=== PATIENT | male | born 1980 | race Caucasian/White ===

== ENCOUNTER 2021-04-26 06:17 | Inpatient (IN) | payer OTHER, SELFPAY ==
[2021-04-26] VITALS (25 sets, daily range): BP systolic 113–132; BP diastolic 80–94; PULSE 67–105; RESP 14–29; TEMP 36.4
--- NOTE | 2021-04-26 04:53 | XACV_ITS ---
Exam Room: 1 Ht: 170 cm Wt: 92 kg BSA: 2.11 m2 Gender: Male : 1980 Any Known Allergies: Other Exam Priority: Routine Indication(s): - Acute coronary syndrome Procedure(s): Procedure Description: Diagnostic procedure Procedure Description: PCI procedure Procedure Description: Drug Eluting Coronary Stent Procedure Description: PTCA Procedure Description: Miscellaneous Procedure Description: Angio-Seal Procedure Description: Coronary Angiography Diagnostic Cath Status: Emergency Diagnostic Findings * Mid Right Coronary Artery to Distal Right Coronary Artery: total thrombotic occlusion, ANTHONY: 0 flow. This is culprit vessel for ST elevation [place]. * Left Main has no disease. * Left Anterior Descending has no disease. * Circumflex has no disease. * Coronary angiography shows right dominance. PCI Status: Emergency PCI Indication: Immediate PCI for STEMI Interventional Findings * Procedure details: We engaged RCA with a JR4 guide catheter. IV heparin was administered to maintain an ACT above 250 seconds. A 0.014 run-through guidewire was used to cross the stenosis and was placed in PDA branch. 2.5 x 12 mm semicompliant balloon was used to predilate the stenosis in the mid RCA. This was followed by placement of 3.0 x 26 mm resolute Kenny drug-eluting stent. At the distal edge of the stent, haziness was noted. We placed a second stent to cover that area using a 3.0x12mm Resolute Kenny BRODIE. At this time final angiogram was performed that showed excellent stent expansion, ANTHONY-3 flow and no residual stenosis. Guidewire and guide catheter were removed. Patient left the [facility] in a stable condition. * Mid Right Coronary Artery to Distal Right Coronary Artery: 100% stenosis treated with a AB TREK 2.50X12 RX BALLOON, and MDT R KENNY 3.0X8 BRODIE. 0% residual stenosis, ANTHONY: 3 flow. * Distal Right Coronary Artery: 100% stenosis treated with a MDT R KENNY 3.0X12 BRODIE. 0% residual stenosis, ANTHONY: 3 flow. Conclusions 1. There is total thrombotic occlusion of mid RCA. The culprit vessel for acute ST elevation [place]. S/p 2 successful revascularization with BRODIE x2.. 2. Mid Right Coronary Artery to Distal Right Coronary Artery was treated with a Balloon, and Drug Eluting Stent. 3. Distal Right Coronary Artery was treated with a Drug Eluting Stent. Recommendations * Transfer to ICU. * Continue aspirin and Plavix for at least 1 year. * High intensity statin therapy. * Beta-adarsh and lisinopril. * Cardiac rehab referral. * Follow-up appointment with cardiology in 4. Interventional RX Recommendation: PCI w/o planned CABG Diagnostic RX Recommendation: PCI w/o planned CABG Anticoagulation: Heparin Pressures Phase:Rest AO : 117 / 86 ( 102 ) @ 1:18:49 AM 114 / 82 ( 96 ) @ 1:18:49 AM Clinical Evaluation EBL: 5mL-10mL Procedural Details Current Diagnosis : STEMI. Pre-Procedure Time Out. Identified patient by full name and date of as verbalized by the patient/guarantor. Does the consent match the physician's order: Yes. Accurate & Complete Informed Consent: N/A Emergent; Informed Consent not obtained due to time critical life threat. If H&P is completed, is and addenduem needed: Yes. Visualize and Verify Site with Patient/Guarantor: N/A. Relevant Radiology Images available: N/A Emergent. Pre-op teaching completed and patient verbalized understanding. Patient's family unavailable. Equipment: 6F - Radial. Cardiac Cath Pack. Physician arrived. Physician scrubbed in. Datumate Manifold Kit Model BT 2000. Heparinized Saline (2 units/mL), 1000 mL bag. The risks, benefits, and alternatives of sedation and/or procedure were discussed by physician. The patient agrees to continue. Procedure started. [facility] Clinical Fraility Score: 3: Managing Well. [facility] [address] [facility] Indications: ACS <= 24 hours. Chest Pain Symptom Assessment: Typical Angina Symptoms. Cardiovascular Instability: Yes, if yes, Persistant Ischemic Symptoms. Correct patient, site and procedure confirmed by cath team. Current diagnosis: STEMI. PERRLA. Strong, equal hand aquaculture director bilaterally. Lungs clear x 5 lobes. IV Site on Arrival: 20 gauge in the right anticubital. IV Fluids: 0.9% NaCl at KVO. 0 mL infused prior to bottle labeler. Oxygen started at 2liters/min via nasal canula. right groin was prepped with chloroprep then draped in the usual sterile fashion. right radial was prepped with chloroprep then draped in the usual sterile fashion. Baseline sample Acquired. HR: 82 BPM. Immediate Pre-Procedure Time Out. Correct Patient: Yes; Correct Procedure: Yes; Correct Site: Yes; Correct Patient Position: Yes; Correct Supplies: Yes; Dried Flammable Prep: Yes; Blood Products Available: N/A. Lidocaine 1% infiltrated to the right radial. Arterial access obtained. PCI Indication: STEMI. 6 kenyan JR 4 guide catheter was inserted over the wire. Cine of the RCA performed. Runthrough guidewire was advanced through the guide catheter to lesion in the mid RCA. AP pads placed on the patient. Inflation number : 1 A AB TREK 2.50X12 RX BALLOON was prepped and advanced across the Mid RCA , then inflated to 12 BENNIE for 0:15 seconds. Inflation number: 2 The AB TREK 2.50X12 RX BALLOON was reinflated across the Mid RCA, to 12 BENNIE for 0:15 seconds. Inflation Number : 3 A MDT R KENNY 3.0X 26 BRODIE -Lot Number# [id number] was prepped and advanced across the Mid RCA. The stent was deployed at 12 BENNIE for 0:20 seconds. Exp. 01/05/2024. Results checked. Runthrough guidewire was advanced through the guide catheter to lesion in the PLV. Inflation Number : 1 A MDT R KENNY 3.0X12 BRODIE -Lot Number# [id number] prepped and advanced across the Dist RCA. The stent was deployed at 12 BENNIE for 0:19 seconds. Exp. 10/29/2022. Inflation number: 2 The stent balloon was then re-inflated across the Dist RCA to 12 BENNIE for 0:16 seconds. Stent balloon out over wire. PLV Runthrough guidewire out. Results checked. PCI Indication : Immediate PCI for STEMI. RCA Runthrough guidewire out. Guide catheter out over the exchange wire. A 5 kenyan JL3.5 catheter in over the exchange wire, unable to cannulate LCA. Catheter removed over the exchange wire. A 5 kenyan TIG catheter in over wire, unable to cannulate LCA. A 5 kenyan JL3.5 catheter in over the exchange wire, unable to cannulate LCA. Catheter removed over the exchange wire. Catheter removed over the exchange wire. ACT drawn. Results 197 seconds. Therapeutic limits - pre-heparin administration 90-150 seconds and monitoring heparin during a vascular procedure >250 seconds. Moving to right femoral access. Lidocaine 1% infiltrated to the right groin. Arterial access obtained with micropuncture set. A 5 kenyan JL3.5 catheter in over the exchange wire. Multiple views taken of left coronary artery. Catheter removed over the exchange wire. A Right femoral angiogram was performed to determine safe placement of closure device. Angioseal placed without complications. No signs or symptoms of hematoma noted. Sterile dressing applied per usual sterile fashion. Lot # [id number]. Exp. 01/02/2022. PERRLA. Strong, equal hand aquaculture director bilaterally. No VTE prophylaxis required. Medication's Wasted: Nitro = 49.7 mg. Medication's Wasted: Lidocaine 1% = 18 mL. Medication's Wasted: Heparin = 3000 units. Medication's Wasted: Atropine 1% = 1 mg. Total IV fluids: 310 mL. A TR Band was successful obtaining hemostatsis at the Right Radial artery insertion site. A Angio-Seal VIP ([place]) was successful obtaining hemostatsis at the Right Femoral artery insertion site. Post-op diagnosis: Inferior wall [place]/Stenting of the Mid and Distal RCA. Complications: none. Estimated blood loss: 5mL-10mL. Procedure completed. Patient transferred by wheelchair to ICU. Vital chart was stopped. Access Site Site: Right Radial artery Sheath Size: 6 Fr Hemostasis Method: TR Band Hemostasis Success: Successful Site: Right Femoral artery Sheath Size: 5 Fr Hemostasis Method: Angio-Seal VIP ([place]) Hemostasis Success: Successful Procedure Medications Start: 5:15 AM Stop: 5:15 AM Medication: Versed Amount: 1 mg Route: I.V. Start: 5:15 AM Stop: 5:15 AM Medication: Fentanyl Amount: 50 mcg Route: I.V. Start: 5:19 AM Stop: 5:19 AM Medication: Nitrogylcerin Amount: 200 mcg Route: I.A. Start: 5:21 AM Stop: 5:21 AM Medication: Heparin Amount: 5000 units Route: I.V. Start: 5:22 AM Stop: 5:22 AM Medication: Versed Amount: 1 mg Route: I.V. Start: 5:29 AM Stop: 5:29 AM Medication: Fentanyl Amount: 50 mcg Route: I.V. Start: 5:31 AM Stop: 5:31 AM Medication: Aggrastat 12.5 mg/250 mL Amount: 46 ml Route: I.V. bolus Start: 5:31 AM Stop: 5:31 AM Medication: Aggrastat 12.5 mg/250 mL Amount: 16.6 ml/hr Route: I.V. drip Start: 5:45 AM Stop: 5:45 AM Medication: 0.9% Saline Amount: 250 ml Route: I.V. bolus Start: 5:51 AM Stop: 5:51 AM Medication: Nitrogylcerin Amount: 100 mcg Route: I.A. Start: 6:01 AM Stop: 6:01 AM Medication: Heparin Amount: 3000 units Route: I.V. I, the attending physician, have reviewed and verified all procedure medications. Yes, all medications given per verbal order History/Risk Factors Hypertension: No Dyslipidemia: No Peripheral Arterial Disease (PAD): No Myocardial Infarction ([place]): No Obesity: No Renal Disease: No Tobacco Use: Current/Recent(w/in 1 year) Prior Interventions PCI: No CABG: No Valve Surgery: No Report Signatures Finalized by Darius Mota MD on 05/09/2021 04:20 PM
--- NOTE | 2021-04-26 04:54 | P.HP_ITS ---
Providers/Chief Complaint Admitting Physician: Darius Mota M.D Chief Complaint: ASSISTANT TO ICU History of Present Illness ETHAN MAHER is a 40 year old male with past medical history of tobacco abuse and significant family history of coronary artery disease, presented to the [place] ER with chief complaint of chest pain for several hours(3-4hrs). It started around midnight. It is substernal and radiated to the left arm. Patient also was diaphoretic. EKG performed in the ER showed inferior lead ST elevations with reciprocal changes in the lateral leads seen. ER physician feels [facility] contact with the EKG and Artificial Teeth Inspector was activated. He was transferred directly by EMS to the Artificial Teeth Inspector here at our hospital. Coronary angiogram showed total thrombotic occlusion of the mid to distal RCA. He underwent successful revascularization with BRODIE x2. Left system did not have any significant stenosis. After PCI patient is chest pain-free and ST elevations resolved. Review of Systems General: Reports: 10 or more systems reviewed and unremarkable except in HPI and below PFSH Acute PFSH: Medical History Tobacco abuse Family History Other CAD (coronary artery disease) Social History Smoking and tobacco status: current every day smoker Physical Exam Narrative: EXAM NARRATIVE: GENERAL: Patient is alert, awake and oriented x3. [] NECK: No jugular vein distension. [] HEENT: No cyanosis. No icterus. No pallor. [] HEART: Regular S1 and S2. No murmur, rub or gallop. [] LUNGS: Clear to auscultate bilaterally. [] ABDOMEN: Soft, nontender and nondistended. Positive bowel sounds. No guarding, rebound or tenderness. [] CENTRAL NERVOUS SYSTEM: Grossly nonfocal. [] EXTREMITIES: Lower extremities with no edema bilaterally. Pulses palpable in the lower extremities, both dorsalis pedis and posterior tibial. [] A&P Assessment and plan (1) Acute ST elevation myocardial infarction: Status: Acute (2) Tobacco abuse: Status: Acute Patient had acute inferior wall ST elevation NV. He was directly transferred by EMS to the Artificial Teeth Inspector for emergent cardiac catheterization. Coronary angiogram showed total thrombotic occlusion of mid to distal RCA. He underwent successful revascularization with BRODIE x2. ST elevations and symptoms resolved after PCI. Admit to ICU. Patient loaded with aspirin, Plavix and given heparin bolus at outside hospital ER Will continue aspirin and plavix for atleast 1 year. Will order echocardiogram. High intensity statin therapy, beta blockers and Lisinopril Will check BMP/CBC and troponin Attestations Medical Necessity Statement*: Care expected to cross 2 midnights. Patient presented with acute ST elevation NV and is status post emergent PCI. Coding Level of Care Code Acute Associate Teacher for Dylan Pizano Diagnoses Acute ST elevation myocardial infarction I21.3 Tobacco abuse Z72.0
--- NOTE | 2021-04-26 06:28 | USCV_ITS ---
ETHAN MAHER Age: 40 Gender: M : 1980 Exam Date: 04/26/2021 15:37 Ordering Phys: Darius Mota M.D ([email or web address]) Technologist: Donna Munoz Exam Location: [facility] [place] Indication: Post STEMI BP: 132 / 80 HR: 73 Rhythm: Sinus Technical Quality: Adequate MEASUREMENTS (Male / Female) Normal Values 2D ECHO LV Diastolic Diameter PLAX 5.1 cm 4.2 - 5.9 / 3.9 - 5.3 cm LV Systolic Diameter PLAX 4.0 cm LV Chamber Size 3.6 cm IVS Diastolic Thickness 1.1 cm 0.6 - 1.0 / 0.6 - 0.9 cm IVS Systolic Thickness 1.3 cm LVPW Diastolic Thickness 1.1 cm 0.6 - 1.0 / 0.6 - 0.9 cm LVPW Systolic Thickness 1.2 cm RV Chamber Size 2.1 cm LVOT Diameter 2.1 cm LV Ejection Fraction 2D Teich 43.0 % LV Ejection Fraction MOD 2C 55.8 % LV Ejection Fraction 2C AL 55.1 % LA Diameter 2.6 cm LA Width 2.4 cm LA Height 4.9 cm RA Width 2.1 cm RA Height 3.9 cm Aorta at Sinotubular Diameter 3.0 cm M-MODE LV Diastolic Diameter MM 5.6 cm 4.2 - 5.9 / 3.9 - 5.3 cm LV Systolic Diameter MM 4.2 cm LV Ejection Fraction MM Teich 49.5 % IVS Diastolic Thickness MM 0.8 cm 0.6 - 1.0 / 0.6 - 0.9 cm IVS Systolic Thickness MM 1.1 cm LVPW Diastolic Thickness MM 1.3 cm 0.6 - 1.0 / 0.6 - 0.9 cm LVPW Systolic Thickness MM 1.5 cm RV Diastolic Diameter MM 1.1 cm Aortic Annulus Diameter 3.6 cm LA Ao Ratio MM 0.8 MV E Point Septal Separation 0.4 cm DOPPLER AV Peak Velocity 95.0 cm/s LVOT Peak Velocity 77.0 cm/s AV Area Cont Eq vti 2.9 cm squared AV Area Cont Eq pk 2.7 cm squared MV Area PHT 3.3 cm squared Mitral E to A Ratio 1.1 MV E' Velocity 28.5 cm/s Mitral E to MV E' Ratio 7.0 Mitral E to LV E' Lateral Ratio 6.3 Mitral E to LV E' Septal Ratio 8.1 TV Peak E Velocity 56.0 cm/s Right Atrial Pressure 8.0 mmHg PV Peak Velocity 46.0 cm/s RV Acceleration Time 0.1 s RV Ejection Time 0.2 s RV AcT/ET 0.3 FINDINGS Left Ventricle Normal left ventricular size. LV systolic function is normal with EF of 50-55%. Mild hypokinesis of the inferior and inferolateral steward. Diastolic function is normal Right Ventricle The right ventricle is normal in size and function. Right Atrium The right atrium is normal in size. Left Atrium The left atrium is normal in size. Mitral Valve Structurally normal mitral valve without significant stenosis or prolapse. There is mild mitral regurgitation. Aortic Valve Structurally normal aortic valve without significant sclerosis or stenosis. There is no aortic regurgitation. Tricuspid Valve Structurally normal tricuspid valve without significant stenosis or regurgitation. Insufficient TR jet to calculate RVSP Pulmonic Valve Structurally normal pulmonic valve without significant stenosis. There is no pulmonic regurgitation. Pericardium Normal pericardium without effusion. Aorta Normal ascending aorta dimension. CONCLUSIONS LV systolic function is normal with EF of 50-55%. Mild hypokinesis of the inferior and inferolateral steward. Diastolic function is normal Mild mitral regurgitation is noted No comparison studies are available Darius Mota MD (Electronically Signed) Final Date: 27 April 2021 12:23 S
--- NOTE | 2021-04-26 08:23 | PC.NURSE ---
0730 2ml released from tr band.
--- NOTE | 2021-04-26 08:24 | PC.NURSE ---
0800 2ml removed from tr band, prior to air removal had c/o some numbness in right thumb
--- NOTE | 2021-04-26 08:25 | PC.NURSE ---
0830 2ml removed from tr band, states numbness is less. aggrastat infusing from cath lab radiology technician.
--- NOTE | 2021-04-26 09:37 | PC.NURSE ---
anothr 2 ml removed from tr band. slight oozing. will monitor.
[2021-04-26 09:50] LABS: Basophils % 0.2 %; Eosinophils % 0.1 %; Hematocrit 48.6 % (42.0-52.0); Hemoglobin 15.8 g/dL (11.7-16.6); Lymphocytes # 1.6 10^3/uL (0.8-4.8); Lymphocytes % 8.6 %; Mean Corpuscular HGB Conc 32.5 g/dL (30.0-36.0); Mean Corpuscular Hemoglobin 30.3 pg (28.0-34.0); Mean Corpuscular Volume 93.1 fl (80-94); Mean Platelet Volume 12.7 fL (7.4-10.4); Monocytes % 5.2 %; Neutrophils # 16.11 10^3/uL (1.8-7.7); Neutrophils % 85.4 %; Nucleated Red Blood Cells % 0 %; Platelet Count 199 10^3/cmm (130-400); Red Blood Count 5.22 10^6/uL (4.1-5.3); Red Cell Distribution Width 13.9 % (12.1-15.1); White Blood Count 18.8 10^3/uL (4.0-10.0)
[2021-04-26] MEDS: aspirin 81 mg EC Tablet PO (10:04)
[2021-04-26] MEDS: lisinopril 2.5 mg Tablet PO (10:04)
--- NOTE | 2021-04-26 10:07 | PC.NURSE ---
plavix not given d/t 600mg. being given in [place] prior to transfer here.
[2021-04-26 10:18] LABS: Blood Urea Nitrogen 13 mg/dL (6-20); Calcium 8.8 mg/dL (8.5-10.5); Carbon Dioxide 23 mmol/L (22-29); Chloride 103 mmol/L (98-107); Glomerular Filtration Rate 93.9 mL/min (90-130); Glucose 146 mg/dL (65-115); Osmolality Calculated 287 mOsm/kg (285-295); Sodium 137 mmol/L (136-145)
[2021-04-26 10:24] LABS: Anion Gap 16.1 (5-19); Potassium 5.1 mmol/L (3.5-5.1)
[2021-04-26] MEDS: metoprolol tartrate 25 mg Tablet 12.5 MG PO ×2 (10:26→22:21)
--- NOTE | 2021-04-26 10:40 | PC.NURSE ---
up to bedside commode with assist and instructions to not move right wrist.
--- NOTE | 2021-04-26 11:13 | PC.NURSE ---
up to bsc, small b.m., formed. remainder of air removed from tr band, band removed, firm area to insertion site noted. bandaide applied. remains up in chair at bedside. right groin w/o edema,
--- NOTE | 2021-04-26 11:35 | PC.NURSE ---
run of wide complex tachycardia vs ideoventricular rhythm. pt did not feel abnormal rhythm. remains up in chair.
[2021-04-26 12:02] LABS: Troponin T (5th) Once > 10000 ng/L (0-15)
[2021-04-26] MEDS: sodium chloride 0.9% 1,000 ML 100 ML IV (13:11)
--- NOTE | 2021-04-26 13:34 | PC.NURSE ---
1145:c/o being sweaty . diaphoresis noted. stated I did this when i had my heart attack did get up to sink, had very large emesis of undigested food. stated he felt better after he threw up.
--- NOTE | 2021-04-26 13:57 | PC.NURSE ---
resting quietly after lunch. no more nausea.
--- NOTE | 2021-04-26 14:54 | XRR_ITS ---
PROCEDURE INFORMATION: Exam: XR Chest Exam date and time: 04/26/2021 2:54 PM Age: 40 years old Clinical indication: Pain; Chest pressure; Additional info: Post stemi TECHNIQUE: Imaging protocol: XR of the chest. Views: 1 view. COMPARISON: No relevant prior studies available. FINDINGS: Lungs: Unremarkable. No consolidation. Pleural spaces: Unremarkable. No pleural effusion. No pneumothorax. Heart/Mediastinum: Unremarkable. No cardiomegaly. Bones/joints: Unremarkable. XR/XR chest 1V [id number] IMPRESSION: No acute findings.
--- NOTE | 2021-04-26 15:06 | PC.NURSE ---
resting quietly in bed. tr band site and right groin site w/o hematoma or ozing.
--- NOTE | 2021-04-26 15:45 | PC.NURSE ---
danny in for echo.
[2021-04-26] MEDS: atorvastatin 40 mg Tablet 80 MG PO (22:21)
[2021-04-27] MEDS: sodium chloride 0.9% 1,000 ML 100 ML IV (03:30)
[2021-04-27 05:50] LABS: Basophils % 0.3 %; Eosinophils # 0.1 10^3/uL (0.0-0.8); Eosinophils % 0.5 %; Hematocrit 45.1 % (42.0-52.0); Hemoglobin 14.2 g/dL (11.7-16.6); Lymphocytes # 3.5 10^3/uL (0.8-4.8); Lymphocytes % 24.1 %; Mean Corpuscular HGB Conc 31.5 g/dL (30.0-36.0); Mean Corpuscular Hemoglobin 29.6 pg (28.0-34.0); Mean Platelet Volume 12.2 fL (7.4-10.4); Monocytes # 1.2 10^3/uL (0.2-0.9); Monocytes % 8.6 %; Neutrophils % 66.2 %; Nucleated Red Blood Cells % 0 %; Platelet Count 168 10^3/cmm (130-400); Red Cell Distribution Width 14.4 % (12.1-15.1); White Blood Count 14.5 10^3/uL (4.0-10.0)
[2021-04-27 06:00] VITALS: PULSE 76
[2021-04-27 06:12] LABS: Anion Gap 12.8 (5-19); Blood Urea Nitrogen 9 mg/dL (6-20); Calcium 8.2 mg/dL (8.5-10.5); Carbon Dioxide 25 mmol/L (22-29); Chloride 104 mmol/L (98-107); Glomerular Filtration Rate 107.6 mL/min (90-130); Glucose 107 mg/dL (65-115); Osmolality Calculated 283 mOsm/kg (285-295); Potassium 4.8 mmol/L (3.5-5.1); Sodium 137 mmol/L (136-145)
--- NOTE | 2021-04-27 07:54 | P.DS_ITS ---
Discharge Providers Date of Admission: 04/26/21 06:17 Date of Discharge: April 27, 2021 Attending Provider at Admission: Darius Mota M.D Attending Provider at Discharge: Darius Mota M.D Diagnoses at Discharge Discharge Diagnosis (1) Acute ST elevation myocardial infarction: (2) Tobacco abuse: Status: Acute Reason for Visit Reason for Visit: Acute ST elevation ME Brief History: 40 year old male with past medical history of tobacco abuse and significant family history of coronary artery disease, presented to the [place] ER with chief complaint of chest pain for several hours(3-4hrs). EKG performed in the ER showed inferior lead ST elevations with reciprocal changes in the lateral leads seen. He was transferred directly by EMS to the Gambling [employer] Person here at our hospital. Hospital Course Hospital Course 40 year old male with past medical history of tobacco abuse and significant family history of coronary artery disease, presented to the [place] ER with chief complaint of chest pain for several hours(3-4hrs). It started around midnight. It is substernal and radiated to the left arm. Patient also was diaphoretic. EKG performed in the ER showed inferior lead ST elevations with reciprocal changes in the lateral leads seen. He was transferred directly by EMS to the [employer]ambling [employer] Person here at our hospital. Coronary angiogram showed total thrombotic occlusion of the mid to distal RCA. He underwent successful revascularization with BRODIE x2. Left system did not have any significant stenosis. Patient did well next day. Echocardiogram showed normal LV systolic function with mild hypokinesis of inferior and inferolateral steward. He was discharged in a stable condition on dual antiplatelet agents and atorvastatin. Metoprolol and lisinopril was also started Physical Exam Narrative: EXAM NARRATIVE: GENERAL: Patient is alert, awake and oriented x3. [] NECK: No jugular vein distension. [] HEENT: No cyanosis. No icterus. No pallor. [] HEART: Regular S1 and S2. No murmur, rub or gallop. [] LUNGS: Clear to auscultate bilaterally. [] ABDOMEN: Soft, nontender and nondistended. Positive bowel sounds. No guarding, rebound or tenderness. [] CENTRAL NERVOUS SYSTEM: Grossly nonfocal. [] EXTREMITIES: Lower extremities with no edema bilaterally. Pulses palpable in the lower extremities, both dorsalis pedis and posterior tibial. [] Discharge Data Data Completed and Pending: Completed Studies During Hospitalization Category Date Time Status XR chest 1V [id number] Routine Exams 04/26/21 14:54 Completed Pending at discharge Category Date Time Status BODY HANGER request for service Routin e Exams 04/26/21 04:53 Taken Basic Metabolic P jennifer AM LABS Lab 04/28/21 04:00 Ordered Basic Metabolic P jennifer AM LABS Lab 04/29/21 04:00 Ordered Complete Blood Co unt w/Auto AM LABS Lab 04/28/21 04:00 Ordered CV. echo complete * [id number] Routine Ultrasound 04/26/21 06:28 Taken Labs from last 24 hours 04/27/21 04/27/21 04/26/21 04:45 04:45 08:52 WBC 14.5 H RBC 4.80 Hgb 14.2 Hct 45.1 MCV 94.0 MCH 29.6 MCHC 31.5 RDW 14.4 Plt Count 168 MPV 12.2 H Neut % (Auto) 66.2 Lymph % (Auto) 24.1 [place] % (Auto) 8.6 Eos % (Auto) 0.5 Baso % (Auto) 0.3 Neut # (Auto) 9.60 H Lymph # (Auto) 3.5 [place] # (Auto) 1.2 H Eos # (Auto) 0.1 Baso # (Auto) 0.0 Nucleated RBC % (a uto) 0 Nucleated RBCs # 0.0 Sodium 137 Potassium 4.8 Chloride 104 Carbon Dioxide 25 Anion Gap 12.8 BUN 9 Creatinine 0.8 GFR Calculation 107.6 Glucose 107 Calculated Osmolal ity 283 L Calcium 8.2 L Troponin T Gen 5 n g/L > 76244 H* 04/26/21 04/26/21 08:52 08:52 WBC 18.8 H RBC 5.22 Hgb 15.8 Hct 48.6 MCV 93.1 MCH 30.3 MCHC 32.5 RDW 13.9 Plt Count 199 MPV 12.7 H Neut % (Auto) 85.4 Lymph % (Auto) 8.6 [place] % (Auto) 5.2 Eos % (Auto) 0.1 Baso % (Auto) 0.2 Neut # (Auto) 16.11 H Lymph # (Auto) 1.6 [place] # (Auto) 1.0 H Eos # (Auto) 0.0 Baso # (Auto) 0.0 Nucleated RBC % (a uto) 0 Nucleated RBCs # 0.0 Sodium 137 Potassium 5.1 Chloride 103 Carbon Dioxide 23 Anion Gap 16.1 BUN 13 Creatinine 0.9 GFR Calculation 93.9 Glucose 146 H Calculated Osmolal ity 287 Calcium 8.8 Troponin T Gen 5 n g/L Vitals: Last Vital Signs Temp 97.5 F L 04/26/21 06:35 Pulse 76 04/27/21 06:00 Resp 27 H 04/26/21 08:15 BP 132/80 04/26/21 08:15 Discharge Plan Discharge Patient Disposition: Home Condition: Stable Prescriptions: New atorvastatin 40 mg Tablet 80 mg PO BEDTIME Qty: 90 RF: 3 clopidogrel 75 mg Tablet 75 mg PO DAILY Qty: 75 RF: 3 aspirin 81 mg Tablet,Delayed Release (Dr/Ec) 81 mg PO DAILY Qty: 90 RF: 3 lisinopril 2.5 mg Tablet 2.5 mg PO DAILY Qty: 90 RF: 3 metoprolol tartrate 25 mg Tablet 12.5 mg PO BID@0900,2100 Qty: 90 RF: 3 Discontinued ibuprofen 200 mg Tablet 600 mg PO DAILY RF: 0 Discharge Orders: Discharge Order (Routine); Ordered 04/27/21 Ordered By: Darius Mota Referrals: Darius Mota M.D [Physician] - 05/27/21 2:30 pm Kyara Elmore FNP [Nurse Practitioner] - 05/04/21 9:00 am Discharge Diet: Cardiac Discharge Activity: Increase activity as tolerated Patient Instructions: Metoprolol (By mouth), Lisinopril (By mouth), Aspirin (By mouth), Atorvastatin (By mouth), Clopidogrel (By mouth), Heart Healthy Diet, Myocardial Infarction (DC), Coronary Angioplasty (DC), How to Stop Smoking (DC), Heart Healthy Diet (DC), Coronary Intravascular Stent Placement (DC), Opioid Safety Activity Restrictions/Additional Instructions: Please do not lift more than 5 pounds of weight for the next 5 days Discharge Attestations Time Spent in Discharge Care*: greater than 30 min Quality Metrics Clinical Quality Measures During this hospital stay, did patient experience: AMI Clinical Trial Participant: No Contraindication to aspirin (AMI): Aspirin given Contraindication to statin: Statin prescribed Coding Level of Care Code Acute Chg FW DC note Diagnoses Acute ST elevation myocardial infarction I21.3 Tobacco abuse Z72.0
--- NOTE | 2021-04-27 09:03 | PC.CHAP ---
Pastoral Care Encounter/Spiritual Assessment Type of Contact [] Declined application development intern visit [] Patient/Family/Request visit [] Outpatient visit [] Follow-up visit [] Physician referral [] Code/Alert [x] Routine visit [] Staff referral [] Actively dying [] Patient sleeping [] Family support [] [] Out of room [] Palliative care [] [] Receiving care in room [] Pre-surgical visit [] Trauma [] Long length of stay [x] ICU visit [] Other: Relational/Emotional Strength [] Patient feels connected with others/family/visitors/staff [] Distress [] Loneliness/isolation [] Abandonment Spirituality of Patient [] Person of Skye [] Attends Yarsani of their Skye [] Believes in Prayer [] Reads Bible or Muslim materials [] There are Spiritual issues to be addressed Employment Security Officer Interventions [x] Prayer [x] Active listening [x] Non-anxious presence [x] Spiritual/emotional support [] Crisis/trauma care [] Spiritual counseling [] Bereavement support [] Provided bereavement packet [] Provided Bible/devotional materials [] Provided toy/stuffed animal, coloring book to patient or family member [] Provided Communion [] Anointing/Donnelly [] Salvation [x] Completed spiritual assessment [] Other: Impact on Illness or Injury [] Angry [] Fearful [] Anxious [] Often cries [] Exhaustion [] Unable to work [] Unable to attend congregation [] Unable to walk/stand [] Unable to read [] Unable to drive [] Unable to eat/drink [] Unable to sleep [] Unable to be with family [] Patient intubated [] Other: Summary patient going home today Time spent with patient 10 mi n
[2021-04-27 09:20] VITALS: BP 112/80; PULSE 66; RESP 25; TEMP 36.8; O2SAT 96
--- NOTE | 2021-04-27 10:24 | PC.NURSE ---
Patient's girlfriend has arrived at bedside. Patient states he would now like his medications sent to [facility] in [place], [place]. Patient is dressed and is ambulating well. Working on getting pharmacy updated now.
--- NOTE | 2021-04-27 10:38 | PC.NURSE ---
Call placed to inpatient pharmacy to verify process. Pharmacist Tim delaney to call medications into [facility]. Call placed to [facility] pharmacy. Patient ambulated out of facility with significant other.
--- NOTE | 2021-04-29 12:19 | PC.RESP ---
SMOKING CESSATION INFORMATION SENT TO PATIENT.
--- NOTE | 2021-04-29 13:46 | PC.SOCIAL ---
discharge follow up call made with patient. patient picked up all new medications and is taking as directed. patient has follow up appointments made. Patient states he is feeling great
== END 2021-04-27 10:36 | disposition home or self-care (01) | DRG 247 ==
PROVIDERS: Admitting Provider Internal Medicine; Visit Provider Internal Medicine
PROC: 027035Z Dilation of Coronary Artery, One Artery with Two Drug-eluting Intraluminal Devices, Percutaneous Approach (ICD-10-PCS; principal; 2021-04-26 04:30)
PROC: 027035Z Dilation of Coronary Artery, One Artery with Two Drug-eluting Intraluminal Devices, Percutaneous Approach (ICD-10-PCS; 2021-04-26 04:30)
DX: I21.11 ST elevation (STEMI) myocardial infarction involving right coronary artery (principal); F17.210 Nicotine dependence, cigarettes, uncomplicated; Z82.49 Family history of ischemic heart disease and other diseases of the circulatory system
CPT/HCPCS: 36415; 71045; 80048; 84484; 85025; 85347; 93306; 93454; C1725; C1760; C1769; C1874; C1887; C1894; C9600; J0461; J1644; J2250; J3010; J3246; J3490; J7030; Q9967

== ENCOUNTER → 2021-05-04 10:03 | Outpatient (BNVA) | payer OTHER, SELFPAY | PROVIDERS: PCP Family Medicine; Visit Provider Nurse Practitioner Family | DX: Z09 Encounter for follow-up examination after completed treatment for conditions other than malignant neoplasm (principal); I25.10 Atherosclerotic heart disease of native coronary artery without angina pectoris; Z95.5 Presence of coronary angioplasty implant and graft | CPT/HCPCS: 80048 ==

== ENCOUNTER 2021-06-15 09:27 | Outpatient (CLI) | payer OTHER, SELFPAY ==
--- NOTE | 2021-06-15 09:35 | NMCV_ITS ---
NM rashmi perf SPECT r/s* [id number] Maxim Ryan Age: 40 Gender: M : 1980 Exam Date: 06/15/2021 11:07 Ordering Phys: Darius Mota M.D ([email or web address]) Technologist: AUDRA Toledo Exam Location: [facility] Indications: SHORTNESS OF BREATH STRESS TEST Please see separate stress test report in [facility] for full findings IMAGE PROTOCOL Rest/Stress 1 Exercise Day Radiopharmaceutical Dose (mCi) Administration Site Administered by Rest: Tc-99m 11.0 IV AUDRA Toledo Sestamibi Stress:Tc-99m 32.7 IV AUDRA Toledo Sestamibi Rest: 15-Jun-2021 60 Discovery 630 Stress: 15-Jun-2021 30 Discovery 630 Radiopharmaceutical was injected at 85 % maximum heart rate. Images obtained in supine and prone position. 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 IMPRESSIONS 1. 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 No evidence of ischemia is seen 2. LV systolic function is normal Darius Mota MD (Electronically Signed) Final Date: 17 June 2021 13:04 S
--- NOTE | 2021-06-15 09:35 | ECG_ITS ---
[facility] Test Date: 2021-06-15 Pat Name: Maxim Ryan Department: Room: Gender: Male Credit Collection Associate: : 1980 Requested By: Darius Mota Order Number: [id number] Fermín MD: Darius Mota M.D. Interpretive Statements NAME OF STUDY: EXERCISE SESTAMIBI STRESS TEST INDICATION: [Chest Pain, ] EXERCISE DATA: The patient was exercised by Michael protocol. Baseline heart rate was 78 beats per minute. Baseline blood pressure was 116/76 millimeters of mercury. Target heart rate was 153 beats per minute. Maximum heart rate achieved was 159, which was 103% of the target heart rate. Maximum blood pressure was 174/78 millimeters of mercury. Total exercise time was 8 minutes and 11 seconds. Maximum METs achieved was 10.2, maximum VO2 was 35.7. The reason for ending the test was target heart rate achieved. The patient complained of Hartness of breath during the stress test, which then resolved at the end of the test. ELECTROCARDIOGRAM: BASELINE: Showed sinus rhythm, normal axis, no significant ST-T changes at the baseline noted. [] EXERCISE: At the peak exercise level, [] No significant ST-T changes suggestive of ischemia noted. [] RECOVERY: During the recovery period, heart rate dropped appropriately. No significant ST-T changes in the recovery suggestive of ischemia noted. [] CONCLUSION: 1. Exercise capacity excellent 2. Heart rate response was appropriate 3. Blood pressure response was appropriate 4. Symptoms not suggestive of ischemia. 5. Electrocardiogram portion of the stress test was not suggestive of ischemia. 6. Nuclear scan will be documented separately. Electronically Signed On 07-13-2021 11:39:13 CONCRETE PUMP OPERATOR HELPER by Darius Mota M.D. [id number]
[2021-06-15 09:54] VITALS: BMI 29.9
[2021-06-15 12:04] VITALS: BP 136/80; PULSE 98
== END 2021-06-15 09:28 | disposition home or self-care (01) ==
LOC: CDL 09:29
PROVIDERS: PCP Family Medicine; Visit Provider Internal Medicine
DX: R07.9 Chest pain, unspecified (principal); R06.02 Shortness of breath
CPT/HCPCS: 78452; 93017; A9500

== ENCOUNTER → 2022-01-27 13:53 | Outpatient (BNVA) | payer OTHER, SELFPAY | PROVIDERS: PCP Family Medicine; Visit Provider Internal Medicine | DX: I25.10 Atherosclerotic heart disease of native coronary artery without angina pectoris (principal); I10 Essential (primary) hypertension; F17.200 Nicotine dependence, unspecified, uncomplicated | CPT/HCPCS: 99214 ==

== ENCOUNTER → 2022-10-25 14:49 | Outpatient (BNVA) | payer OTHER, SELFPAY | PROVIDERS: PCP Family Medicine; Visit Provider Internal Medicine | DX: I25.10 Atherosclerotic heart disease of native coronary artery without angina pectoris (principal); I10 Essential (primary) hypertension; F17.200 Nicotine dependence, unspecified, uncomplicated | CPT/HCPCS: 99214 ==